=== PATIENT | female | born 1975 ===

== ENCOUNTER 2022-01-31 18:45 | Emergency (ER) | payer MEDICAID, OTHER ==
[2022-01-31] MEDS ORDERED: Sodium Chloride 0.9% 10 ML Syringe FLUSH PRN (19:26)
[2022-01-31] MEDS ORDERED: GI Cocktail Oral Solution 30 ML PO ONE (19:32)
[2022-01-31] MEDS ORDERED: Iopamidol 612 MG/ML 100 ML Bottle IVPUSH ONE (20:45)
[2022-01-31 20:52] VITALS: BP 119/91; PULSE 69
== END 2022-01-31 22:30 | disposition home or self-care (01) ==
LOC: DL.ED 18:45
DX: K29.50 Unspecified chronic gastritis without bleeding (principal); K20.90 Esophagitis, unspecified without bleeding; E10.9 Type 1 diabetes mellitus without complications; F17.210 Nicotine dependence, cigarettes, uncomplicated
CPT/HCPCS: 36415; 74177; 80053; 81001; 81025; 83690; 83735; 85025; 99284; A9270; J3490; Q9967

== ENCOUNTER 2024-10-21 18:33 | Emergency (ER) | payer OTHER ==
[2024-10-21 18:49] VITALS: PULSE 77
[2024-10-21 19:36] VITALS: BP 162/90
[2024-10-21 20:04] LABS: BASOPHILS PERCENT AUTO 0.3 % (0.0-1.0); EOSINOPHILS PERCENT AUTO 2.1 % (1.0-3.0); HEMATOCRIT 39.5 % (37.0-47.0); HEMOGLOBIN 12.9 g/dL (12.0-16.0); LYMPHOCYTES PERCENT AUTO 40.9 % (20.5-50.1); MEAN CORPUSCULAR HEMOGLOBIN 28.7 pg (27.0-34.0); MEAN CORPUSCULAR HGB CONC 32.7 g/dL (33.0-35.0); MEAN CORPUSCULAR VOLUME 87.8 fL (80-100); MONOCYTES PERCENT AUTO 7.3 % (2-8); NEUTROPHILS PERCENT AUTO 49.4 % (42.2-75.2); PLATELET COUNT,PLT 291 10^3/uL (150-450); WHITE BLOOD CELL COUNT,WBC 7.6 10^3/uL (5.0-10.0)
[2024-10-21 20:32] LABS: A/G RATIO 0.8; ALBUMIN 3.5 g/dL (3.4-5.0); ANION GAP 16.8 mEq/L (7-13); BILIRUBIN TOTAL 0.3 mg/dL (0.2-1.0); BUN/CREATININE RATIO 8.3 (No establ ref range); CALCIUM 8.9 mg/dL (8.5-10.1); CREATININE 0.72 mg/dL (0.55-1.02); EST CRCL DRUG DOSING (CG) 97.44 mL/min; POTASSIUM,K 3.8 mmol/L (3.5-5.1); PROTEIN TOTAL,TP 7.8 g/dL (6.4-8.2)
== END 2024-10-21 20:30 | disposition home or self-care (01) ==
LOC: DL.ED 18:33
DX: E11.9 Type 2 diabetes mellitus without complications (principal); F17.210 Nicotine dependence, cigarettes, uncomplicated; Z79.84 Long term (current) use of oral hypoglycemic drugs; Z79.899 Other long term (current) drug therapy
CPT/HCPCS: 36415; 80053; 82947; 85025; 99283